=== PATIENT | male | born 1995 | race Caucasian/White ===

== ENCOUNTER 2016-05-03 11:09 | Emergency (ER) | payer BC ==
[~2016-05-03] VITALS: Ht 177.8 cm; Wt 63.5 kg
[2016-05-03 11:18] VITALS: BP 99/48
[2016-05-03] MEDS ORDERED: predniSONE 20 MG TABLET PO ONE (11:30)
[2016-05-03] MEDS ORDERED: DIPHENHYDRAMINE HCL 12.5 MG/5 ML UDC PO ONE (11:30)
[2016-05-03] MEDS ORDERED: diphenhydrAMINE HCL 25 MG CAPSULE ONE (11:43)
[2016-05-03] MEDS ORDERED: predniSONE 20 MG TABLET ONE (11:43)
== END 2016-05-03 12:30 | disposition home or self-care (01) ==
LOC: ER 11:13
DX: S60.561A Insect bite (nonvenomous) of right hand, initial encounter (principal); Z88.1 Allergy status to other antibiotic agents; Z88.0 Allergy status to penicillin; F17.210 Nicotine dependence, cigarettes, uncomplicated; F10.20 Alcohol dependence, uncomplicated; W57.XXXA Bitten or stung by nonvenomous insect and other nonvenomous arthropods, initial encounter; Y92.89 Other specified places as the place of occurrence of the external cause; Y93.89 Activity, other specified; Y99.8 Other external cause status
CPT/HCPCS: A4606; Q0163; Z7610